=== PATIENT | male | born 1970 | race Caucasian/White ===

== ENCOUNTER → 2016-09-25 | Outpatient (CLI) | payer BC | LOC: RAD 09:16 | PROVIDERS: ATTEND Urology | DX: C64.2 Malignant neoplasm of left kidney, except renal pelvis (principal) | CPT/HCPCS: 71020; 74178; 82565 ==

== ENCOUNTER → 2017-10-11 | Outpatient (CLI) | payer BC ==
--- NOTE | 2017-10-11 12:44 | RADIOLOGY REPORT (SQ) ---
EXAM DESCRIPTION: CT ABD/PELVIS COMBO COMPLETED DATE/TIME: 10/11/2017 10:51 am REASON FOR STUDY: MALIGNANT NEOPLASM OF LEFT KIDNEY, EXCEPT RENAL PELVIS (C64.2) C64.2 MALIGNANT NE OPLASM OF LEFT KIDNEY, EXCEPT RENAL PELVIS COMPARISON: None. TECHNIQUE: CT scan of the abdomen and pelvis performed with and without intravenous contrast, and wi thout oral contrast. Contrasted imaging performed helical scanning technique and dynamic intravenous contrast injection. Images reviewed with lung, soft tissue, and bone windows. Reconstructed coronal a nd sagittal MPR images reviewed. Delayed images for evaluation of the urinary system also acquired. A ll images stored on PACS. All CT scanners at this facility use dose modulation, iterative reconstruction, and/or weight based d osing when appropriate to reduce radiation dose to as low as reasonably achievable (ALARA). [facility]: Dose Right [facility]: CareDose [facility]: Dose Right [facility]: Teradose 4D [facility]: Thumb Reading CONTRAST TYPE AND DOSE: contrast/concentration: Isovue 300.00 mg/ml; Total Contrast Delivered: 96.0 ml; Total Saline Delivered: 72.0 ml RENAL FUNCTION: Creatinine 1.3 RADIATION DOSE: CT Rad equipment meets quality standard of care and radiation dose reduction techniq ues were employed. CTDIvol: 9.8 - 10.7 mGy. DLP: 1602 mGy-cm. . LIMITATIONS: None. FINDINGS: NON-CONTRASTED IMAGING: No significant renal or bladder calcifications. No other significa nt organ calcifications. POST-CONTRASTED IMAGING: LOWER CHEST: No significant findings. No nodules or infiltrates. LIVER: Fatty liver. Normal size. No masses. No dilated ducts. SPLEEN: Normal size. No focal lesions. PANCREAS: No masses. No significant calcifications. No adjacent inflammation or peripancreatic fluid collections. Pancreatic duct not dilated. GALLBLADDER: No identified stones by CT criteria. No inflammatory changes to suggest cholecystitis. ADRENAL GLANDS: No significant masses or asymmetry. RIGHT KIDNEY AND URETER: No solid masses. No significant calcifications. No hydronephrosis or hyd roureter. LEFT KIDNEY AND URETER: Post left nephrectomy. No recurrent nodules in the nephrectomy fossa. No si gnificant retroperitoneal adenopathy. AORTA AND VESSELS: No aneurysm. No dissection. Renal arteries, SMA, celiac without stenosis. RETROPERITONEUM: No retroperitoneal adenopathy, hemorrhage or masses. BOWEL AND PERITONEAL CAVITY: No masses or inflammatory changes. No free fluid or peritoneal masses. APPENDIX: Normal. PELVIS: No mass. No free fluid. Normal bladder. ABDOMINAL WALL: No masses. Fat containing bilateral inguinal hernias. BONES: No significant or acute findings. OTHER: No other significant finding. IMPRESSION: Post left nephrectomy. No CT evidence for recurrent or metastatic renal cell carcinoma. Fatty liver. TECHNICAL DOCUMENTATION: JOB ID: [id number] Quality ID # [id number]: Final reports with documentation of one or more dose reduction techniques (e.g., Au tomated exposure control, adjustment of the mA and/or kV according to patient size, use of iterative reconstruction technique) 2010 [employer]- All Rights Reserved Reading location - IP/workstation name: [email or web address]
== END ==
LOC: RAD 10:02
PROVIDERS: ATTEND Urology
DX: C64.2 Malignant neoplasm of left kidney, except renal pelvis (principal); Z90.5 Acquired absence of kidney
CPT/HCPCS: 74178; 82565

== ENCOUNTER 2018-12-02 14:52 | Emergency (ER) | payer BC, OTHER ==
--- NOTE | 2018-12-02 15:47 | ER Document Report ---
ED Medical Screen (RME) - General Chief Complaint: High Blood Pressure Stated Complaint: BLOOD PRESSURE CONCERNS Time Seen by Provider: 12/02/18 15:41 Primary Care Provider: HODAN THAKUR MD [Primary Care Provider] - Follow up as needed Mode of Arrival: Ambulatory Information source: Patient Notes: Patient presents emergency department with feeling of lightheadedness dizziness with high blood pressure. Reports some nausea. Reports her blood pressure started today dizziness and lightheadedness yesterday. Denies fever vomiting diarrhea. Reports he had a physical 1 month ago and everything was fine. Patient does have a history of kidney cancer with left nephrectomy. Denies pain with void reports voiding okay. Patient reports he feels lightheaded just sitt ing there. I have greeted and performed a rapid initial assessment of this patient. A comprehensive ED assessment and evaluation of the patient, analysis of test results and completion of the medical decision making process will be conducted by additional ED providers. Dictation of this chart was performed using voice recognition software; therefore, there may be some unintended grammatical errors. TRAVEL OUTSIDE OF THE [place] IN LAST 30 DAYS: No - Related Data Allergies/Adverse Reactions: Penicillins Allergy (Severe, Verified 12/02/18 14:53) Swelling of Throat Past Medical History - Social History Chew tobacco use (# tins/day): No Frequency of alcohol use: None Drug Abuse: None Family history: Reviewed & Not Pertinent Renal/ Medical History: Denies: Hx Peritoneal Dialysis Past Surgical History: Reports: Hx Kidney (Renal Surgery) - removal one kidney d/t cancer - Immunizations Hx Diphtheria, Pertussis, Tetanus Vaccination: No Physical Exam - Vital signs Vitals: Temp Pulse Resp BP Pulse Ox 97.5 F 79 18 169/109 H 97 12/02/18 14:57 12/02/18 14:57 12/02/18 14:57 12/02/18 14:57 12/02/18 14:57 Course - Vital Signs Vital signs: Temp Pulse Resp BP Pulse Ox 97.5 F 79 18 169/109 H 97 12/02/18 14:57 12/02/18 14:57 12/02/18 14:57 12/02/18 14:57 12/02/18 14:57 Doctor's Discharge - Discharge Referrals: HODAN THAKUR MD [Primary Care Provider] - Follow up as needed
--- NOTE | 2018-12-02 16:11 | RADIOLOGY REPORT (SQ) ---
EXAM DESCRIPTION: CHEST 2 VIEWS COMPLETED DATE/TIME: 12/02/2018 3:57 pm REASON FOR STUDY: dizziness COMPARISON: None. TECHNIQUE: Frontal and lateral radiographic views of the chest acquired. NUMBER OF VIEWS: Two view. LIMITATIONS: None. FINDINGS: LUNGS AND PLEURA: No opacities, masses or pneumothorax. No pleural effusion. MEDIASTINUM AND HILAR STRUCTURES: No masses or contour abnormalities. HEART AND VASCULAR STRUCTURES: Heart normal size. No evidence for failure. BONES: No acute findings. HARDWARE: None in the chest. OTHER: No other significant finding. IMPRESSION: NO SIGNIFICANT RADIOGRAPHIC FINDING IN THE CHEST. TECHNICAL DOCUMENTATION: JOB ID: [id number] [employer]- All Rights Reserved Reading location - IP/workstation name: [email or web address]
[2018-12-02 16:13] LABS: ABSOLUTE BASOPHILS # (AUTO) 0.1 10^3/uL (0.0-0.2); ABSOLUTE LYMPHOCYTES (AUTO) 1.7 10^3/uL (0.5-4.7); ABSOLUTE MONOCYTES (AUTO) 0.6 10^3/uL (0.1-1.4); ABSOLUTE NEUT (AUTO) 5.7 10^3/uL (1.7-8.2); BASOPHILS % (AUTO) 0.9 % (0-2); EOSINOPHILS % (AUTO) 0.5 % (0-6); HEMATOCRIT 47.2 % (37.9-51.0); HEMOGLOBIN 16.5 g/dL (13.5-17.0); LYMPHOCYTES % (AUTO) 21.2 % (13-45); MEAN CORPUSCULAR HEMOGLOBIN 28.8 pg (27.0-33.4); MEAN CORPUSCULAR HGB CONC 34.9 g/dL (32.0-36.0); MEAN CORPUSCULAR VOLUME 82 fl (80-97); MONOCYTES % (AUTO) 7.4 % (3-13); PLATELET COUNT 232 10^3/uL (150-450); RED BLOOD COUNT 5.73 10^6/uL (4.35-5.55); RED CELL DISTRIBUTION WIDTH 13.7 % (11.5-14.0); TOTAL CELLS COUNTED % (AUTO) 100 %; WHITE BLOOD COUNT 8.2 10^3/uL (4.0-10.5)
[2018-12-02 16:34] LABS: ALANINE AMINOTRANSFERASE 53 U/L (21-72); ALBUMIN 4.8 g/dL (3.5-5.0); ALKALINE PHOSPHATASE 84 U/L (38-126); ANION GAP 12 (5-19); ASPARTATE AMINO TRANSFERASE 36 U/L (17-59); BILIRUBIN,DIRECT 0.3 mg/dL (0.0-0.4); BILIRUBIN,TOTAL 0.6 mg/dL (0.2-1.3); BLOOD UREA NITROGEN 19 mg/dL (7-20); CALCIUM 9.9 mg/dL (8.4-10.2); CARBON DIOXIDE 27 mmol/L (22-30); CHLORIDE 103 mmol/L (98-107); CREATINE KINASE 49 U/L (55-170); GLUCOSE 82 mg/dL (75-110); POTASSIUM 4.3 mmol/L (3.6-5.0); SODIUM 142.4 mmol/L (137-145); TOTAL PROTEIN 7.8 g/dL (6.3-8.2)
--- NOTE | 2018-12-02 18:40 | ER Document Report ---
ED General - General Chief Complaint: High Blood Pressure Stated Complaint: BLOOD PRESSURE CONCERNS Time Seen by Provider: 12/02/18 15:41 Primary Care Provider: HODAN THAKUR MD [[facility]] - Follow up as needed Mode of Arrival: Ambulatory TRAVEL OUTSIDE OF THE [place] IN LAST 30 DAYS: No - HPI Notes: Patient is a 48-year-old male who presents to the emergency department for evaluation of dizziness and elevated blood pressure. He states he started fe eling dizzy and lightheaded. He denies any sensation that the world is spinning. He denies any recent head injury. He states he is seeing, speaking, swallowing without difficulty. Moving all 4 extremities without difficulty. He states his has pre-hypertension. They took his blood pressure and found to be elevated. He was seeing numbers as high as 160s over 100s. He has no history of high blood pressure. He states he had a physical a month ago and was told that everything was normal. He denies any pain at this time. - Related Data Allergies/Adverse Reactions: Penicillins Allergy (Severe, Verified 12/02/18 14:53) Swelling of Throat Past Medical History - General Information source: Patient - Social History Smoking Status: Former Smoker - Quit in 2013 Chew tobacco use (# tins/day): No Frequency of alcohol use: None Drug Abuse: None Family History: CAD Patient has suicidal ideation: No Patient has homicidal ideation: No Renal/ Medical History: Denies: Hx Peritoneal Dialysis Malignancy Medical History: Reports Hx Renal (Kidney) Cancer - Status post nephrectomy, no chemotherapy Past Surgical History: Reports: Hx Kidney (Renal Surgery) - removal one kidney d/t cancer - Immunizations Hx Diphtheria, Pertussis, Tetanus Vaccination: No Review of Systems - Review of Systems Constitutional: No symptoms reported EENT: No symptoms reported Cardiovascular: No symptoms reported Respiratory: No symptoms reported Gastrointestinal: No symptoms reported Genitourinary: No symptoms reported Musculoskeletal: No symptoms reported Skin: No symptoms reported Neurological/Psychological: See HPI Physical Exam - Vital signs Vitals: Temp Pulse Resp BP Pulse Ox 97.5 F 79 18 169/109 H 97 12/02/18 14:57 12/02/18 14:57 12/02/18 14:57 12/02/18 14:57 12/02/18 14:57 - Notes Notes: Vital signs reviewed, please refer to chart. Head is normocephalic, atraumatic. Pupils equal round, reactive to light. Neck is supple without meningismus. Heart is regular rate and rhythm. Lungs are clear to auscultation bilaterally. Abdomen is soft, nontender, normoactive bowel sounds throughout. Extremities without cyanosis, clubbing. Posterior calves are nontender. Peripheral pulses are equal. Skin is warm and dry. Patient is awake, alert, oriented x3. Cranial nerves II - XII are grossly intact without focal neurological deficits. Strength is plus 5 out of 5 bilateral lower extremities. Sensation is intact. Reflexes symmetrical. Intact [id number], rapid altering movements, [id number]. Course - Re-evaluation Re-evalutation: 12/02/18 18:37 Patient presented to the emergency department for evaluation of elevated blood pressure. His blood pressure is in fact elevated here. Laboratory inve stigations, imaging, EKG is ordered through triage. The only significant abnormality noted was his creatinine. The patient is status post nephrectomy. He does not know what his baseline creatinine is. The importance of having this rechecked was stressed to the patient. We had a long discussion regarding blood pressure. We discussed diet and lifestyle modifications, and his and the patient are on board with doing so. It was explained that he should keep a record of his blood pressures at home and follow-up with his family doctor in 1 to 2 weeks. He voiced understanding to this. Otherwise he is also told he is to cut his caffeine consumption down. He is to return to the emergency department with worsening or new concerning symptoms of any sort. - Vital Signs Vital signs: Temp Pulse Resp BP Pulse Ox 97.5 F 79 18 169/109 H 97 12/02/18 14:57 12/02/18 14:57 12/02/18 14:57 12/02/18 14:57 12/02/18 14:57 - Laboratory Result Diagrams: 12/02/18 15:53 12/02/18 15:53 Laboratory results interpreted by me: 12/02/18 12/02/18 15:53 15:53 RBC 5.73 H Creatinine 1.35 H Est GFR (Non-Af Amer) 56 L Creatine Kinase 49 L - Diagnostic Test Radiology reviewed: Reports reviewed Radiology results interpreted by me: 12/02/18 18:38 Chest X-Ray 12/02/18 15:45 IMPRESSION: NO SIGNIFICANT RADIOGRAPHIC FINDING IN THE CHEST. - EKG Interpretation by Me Additional EKG results interpreted by me: 12/02/18 18:39 Sinus mechanism with a rate of 65 bpm. Normal axis and intervals, no acute ST changes concerning for ischemia or infarction. Discharge - Discharge Clinical Impression: Abnormal renal function, Elevated blood pressure reading without diagnosis of hypertension, Dizziness Condition: Stable Disposition: HOME, SELF-CARE Instructions: High Blood Pressure ([facility]), Dizziness ([facility]) Additional Instructions: Your creatinine was 1.35 today. This is mildly elevated, and should be rechecked by your primary care physician. Keep a log of your blood pressures at home as discussed. Follow-up with your doctor in 1 to 2 weeks to discuss whether or not you should be on antihypertensive medications. If you develop worsening or new concerning symptoms of any sort, return immediately to the emergency department for reevaluation. Referrals: HODAN THAKUR MD [[facility]] - Follow up as needed
[2018-12-02 19:11] VITALS: BP 158/100
[2018-12-02 19:11] LABS: APPEARANCE,URINE CLEAR; BILIRUBIN,URINE NEGATIVE (NEGATIVE); COLOR,URINE STRAW; GLUCOSE, URINE NEGATIVE (NEGATIVE); KETONES,URINE NEGATIVE (NEGATIVE); LEUKOCYTE ESTERASE,URINE NEGATIVE (NEGATIVE); NITRITE,URINE NEGATIVE (NEGATIVE); PROTEIN,URINE NEGATIVE (NEGATIVE); UROBILINOGEN,URINE NEGATIVE mg/dL (<2.0)
--- NOTE | 2018-12-02 19:26 | EKG REPORT ---
SEVERITY:- NORMAL ECG - SINUS RHYTHM : Confirmed by: Fer Ojeda MD 02-Dec-2018 19:25:12
== END 2018-12-02 19:10 | disposition home or self-care (01) ==
LOC: ER 14:52
DX: R03.0 Elevated blood-pressure reading, without diagnosis of hypertension (principal); R42 Dizziness and giddiness; N28.9 Disorder of kidney and ureter, unspecified; Z87.891 Personal history of nicotine dependence; Z90.5 Acquired absence of kidney; Z85.528 Personal history of other malignant neoplasm of kidney; Z88.0 Allergy status to penicillin
CPT/HCPCS: 36415; 71046; 80053; 81001; 82550; 84484; 85025; 93005; 93010; 99284